=== PATIENT | male | born 1990 | race African-American/Black ===

== ENCOUNTER 2016-09-14 18:52 | Emergency (ER) | payer SELFPAY ==
[2016-09-14 19:04] LABS: URINE APPEARANCE CLEAR; URINE BILIRUBIN NEGATIVE (NEG); URINE BLOOD NEGATIVE (NEG); URINE COLOR YELLOW; URINE GLUCOSE (UA) NEGATIVE (NEG); URINE KETONE NEGATIVE (NEG); URINE LEUKOCYTE ESTERASE POSITIVE (NEG); URINE NITRITE NEGATIVE (NEG); URINE PROTEIN NEGATIVE (NEG)
[2016-09-14 19:12] LABS: URINE EPITHELIAL CELLS 0-1 /[HPF] (0-10); URINE RBC 0-1 /[HPF] (0-5)
[2016-09-14] MEDS ORDERED: NO HOME MEDICATION XX (19:50)
== END 2016-09-14 21:17 ==
LOC: EDMED 18:52
PROVIDERS: Emergency Medicine
DX: R30.0 Dysuria (principal); Z72.51 High risk heterosexual behavior; F17.210 Nicotine dependence, cigarettes, uncomplicated
CPT/HCPCS: J0696